=== PATIENT | male | born 1960 | race Caucasian/White ===

== ENCOUNTER 2016-09-20 05:40 | Day surgery (SDC) | payer MEDICAID ==
[2016-09-20] MEDS ORDERED: Dextrose 5%-Lactated Ringers 1,000 ML IV SCH (06:15)
[2016-09-20] MEDS ORDERED: Propofol 200 MG/20 ML SDV ONE (07:16)
[2016-09-20] MEDS ORDERED: fentaNYL 100 MCG/2 ML SDV ONE (07:16)
[2016-09-20] MEDS ORDERED: Midazolam 1 MG/ML 2 ML SDV ONE (07:16)
[2016-09-20 09:15] VITALS: BP 117/70
--- NOTE | 2016-09-23 15:22 | OR ---
DATE OF PROCEDURE: 09/20/2016 PREOPERATIVE DIAGNOSIS: Positive fecal immunochemical test. POSTOPERATIVE DIAGNOSES: 1. Small polyps involving distal transverse colon and rectum. 2. Large sessile mass involving the sigmoid colon. OPERATIVE PROCEDURE: Flexible colonoscopy with: 1. Polypectomy of small polyps at distal transverse colon and rectum with snare technique (16278). 2. Injection of Ruma ink at sigmoid colon mass (68464). ANESTHESIA: IV sedation. INDICATIONS FOR PROCEDURE: A 55-year-old male presenting with a positive FIT test, is undergoing colonoscopy at this point with biopsies and a polypectomy as indicated. Potential risks of the procedure including bleeding and perforation were discussed, and the patient wishes to proceed. DETAILS OF PROCEDURE: The patient was taken to the operating room and placed in a left lateral decubitus position. IV sedation was administered after which the initial digital rectal exam was performed and was unremarkable. Colonoscope was then passed into the rectum with retroflexion revealing uncomplicated hemorrhoidal columns. The scope was eventually passed along the cecum. The prep was fairly good. There was a fair bit of mucoid type stool that needed to be evacuated, but virtually all of the colonic surface was well visualized. The patient had no areas of colitis and no diverticula. There were two quite small polyps, one in distal transverse colon and one in the rectum at 10 cm from the dentate line, which were both excised by means of the cautery snare technique and were evacuated and sent in a separate specimen. The patient had additionally then a large mass involving the sigmoid colon. There was some abnormality of the mucosa, but this may end up being a submucosal mass, but it occupies roughly 2/3rd of the lumen and clearly at this point needs to be resected. If nothing else to prevent an obstruction and ulceration at that site. This was roughly 40 cm from the dentate line. To facilitate identification in case it happens to be fairly soft and difficult to palpate, 4 mL of Ruma ink was injected submucosally adjacent to the mass. At that point, no further problems noted and the scope was withdrawn and the patient was taken to the recovery room in satisfactory condition. After discussion of the situation, the patient and his , the plan will be to proceed with a sigmoid colon resection on Friday. The other polyps were extremely small and had negligible chance of being malignant at this point. Ac Chairez MD /[id number]
== END 2016-09-20 09:44 | disposition home or self-care (01) ==
LOC: JP.SDS 05:40
PROVIDERS: ATTEND Surgery
DX: Z12.11 Encounter for screening for malignant neoplasm of colon (principal); D12.3 Benign neoplasm of transverse colon; E11.9 Type 2 diabetes mellitus without complications; E78.5 Hyperlipidemia, unspecified; E66.01 Morbid (severe) obesity due to excess calories; K21.9 Gastro-esophageal reflux disease without esophagitis; G47.33 Obstructive sleep apnea (adult) (pediatric); Z88.0 Allergy status to penicillin; Z91.09 Other allergy status, other than to drugs and biological substances; F17.210 Nicotine dependence, cigarettes, uncomplicated; Z98.890 Other specified postprocedural states
CPT/HCPCS: 36415; 45381; 45385; 80053; 82378; 83036; 83735; 84100; 85027; 93005; J2250; J2704; J3010; 88305

== ENCOUNTER 2016-09-23 05:48 | Inpatient (IN) | payer MEDICAID ==
[2016-09-23] MEDS ORDERED: Acetaminophen 500 MG Tab PO ONE (06:00)
[2016-09-23] MEDS ORDERED: Gabapentin 300 MG Cap PO ONE (06:00)
[2016-09-23] MEDS ORDERED: Celecoxib 200 MG Cap PO ONE (06:00)
[2016-09-23] MEDS ORDERED: Neomycin/Polymyxin B 1 ML, Sodium Chloride 0.9% 750 ML IRR ONE ×2 (06:15)
[2016-09-23] MEDS: Scopolamine 1.5 MG Transdermal Patch TOP SCH (06:32)
[2016-09-23] MEDS ORDERED: Dextrose 5%-Lactated Ringers 1,000 ML IV SCH (07:00)
[2016-09-23] MEDS ORDERED: Ketamine 500 MG/5 ML MDV IV SCH (07:15)
[2016-09-23] MEDS ORDERED: Meropenem 500 MG SDV ONE (08:42)
[2016-09-23] MEDS ORDERED: Succinylcholine/Normal Saline 200 MG/10 ML Syringe ONE (08:46)
[2016-09-23] MEDS ORDERED: Rocuronium 50 MG/5 ML Vial ONE (08:46)
[2016-09-23] MEDS ORDERED: Ondansetron 4 MG/2 ML SDV ONE (08:46)
[2016-09-23] MEDS ORDERED: Propofol 200 MG/20 ML SDV ONE (08:46)
[2016-09-23] MEDS ORDERED: Neostigmine Methylsulfate 1 MG/ML 5 ML Syringe ONE (08:46)
[2016-09-23] MEDS ORDERED: fentaNYL 250 MCG/5 ML SDV ONE (08:46)
[2016-09-23] MEDS ORDERED: Dexamethasone 4 MG/ML SDV ONE (08:46)
[2016-09-23] MEDS ORDERED: Naloxone 0.4 MG/ML SDV IVPUSH PRN (08:52)
[2016-09-23] MEDS ORDERED: Albuterol/Ipratropium 3.0-0.5 MG/3 ML Neb Soln NEB ONE (08:58)
[2016-09-23] MEDS: cefOXitin 2 GM in Sodium Chloride 0.9% 50 ML IV ONE ×2 (09:45→14:41)
[2016-09-23] MEDS ORDERED: fentaNYL 100 MCG/2 ML SDV ONE (10:20)
[2016-09-23] MEDS ORDERED: Lactated Ringers 1,000 ML ONE (10:44)
[2016-09-23] MEDS ORDERED: Sodium Chloride 0.9% 10 ML ONE (10:44)
[2016-09-23] MEDS ORDERED: Lidocaine 2% Jelly 10 ML Urojet MUCMEM ONE (13:15)
[2016-09-23] MEDS ORDERED: 50% Dextrose in Water 50 ML Syringe IVPUSH PRN (14:11)
[2016-09-23] MEDS ORDERED: Glucose Gel 15 GM in 37.5 GM Tube PO PRN (14:11)
[2016-09-23] MEDS ORDERED: Glucagon,Human Recombinant 1 MG Vial IM PRN (14:11)
[2016-09-23] MEDS ORDERED: Ondansetron 4 MG/2 ML SDV IV PRN (14:16)
[2016-09-23] MEDS ORDERED: Cyclobenzaprine 10 MG Tab PO PRN (14:17)
[2016-09-23] MEDS ORDERED: Diazepam 5 MG Tab PO PRN (14:17)
[2016-09-23] MEDS ORDERED: hydrOXYzine HCl 100 MG/2 ML SDV IM PRN (14:22)
[2016-09-23] MEDS ORDERED: hydrOXYzine HCl 25 MG Tab PO PRN (14:23)
[2016-09-23] MEDS ORDERED: Naloxone 0.4 MG/ML SDV IV PRN (14:28)
[2016-09-23] MEDS ORDERED: diphenhydrAMINE 50 MG/ML SDV IVPUSH PRN (14:28)
[2016-09-23] MEDS ORDERED: ePHEDrine 50 MG/ML SDV IVPUSH PRN (14:28)
[2016-09-23] MEDS: Dextrose 5%-Lactated Ringers 1,000 ML IV SCH ×2 (14:35→21:31)
[2016-09-23] MEDS: fentaNYL 2,500 MCG in Sodium Chloride 0.9% 200 ML EPIDUR SCH (16:54)
[2016-09-23] MEDS: cefOXitin 2 GM in Sodium Chloride 0.9% 50 ML IV SCH ×2 (16:56→21:37)
[2016-09-23] MEDS: VERIFY SCOP PATCH TOP SCH (16:56)
[2016-09-23] MEDS: Gabapentin 300 MG Cap PO SCH ×2 (16:57→21:39)
[2016-09-23] MEDS: Acetaminophen 500 MG Tab PO SCH ×2 (16:58→21:39)
[2016-09-23] MEDS: Pantoprazole 40 MG Vial IV SCH (16:58)
[2016-09-23] MEDS: metFORMIN 500 MG Tab PO SCH (16:59)
[2016-09-23] MEDS: Insulin Aspart 100 Units/ML 3 ML Pen SUBCUT PRN ×2 (17:06→21:40)
[2016-09-23] MEDS: Tamsulosin 0.4 MG Cap.ER PO SCH (21:38)
[2016-09-24] MEDS: Dextrose 5%-Lactated Ringers 1,000 ML IV SCH (03:50)
[2016-09-24] MEDS: cefOXitin 2 GM in Sodium Chloride 0.9% 50 ML IV SCH (04:57)
[2016-09-24] MEDS: Acetaminophen 500 MG Tab PO SCH ×4 (04:58→21:53)
[2016-09-24] MEDS: Gabapentin 300 MG Cap PO SCH ×4 (05:00→21:54)
[2016-09-24] MEDS: Pioglitazone 15 MG Tab PO SCH ×2 (07:29→16:33)
[2016-09-24] MEDS ORDERED: Dextrose 5%-Lactated Ringers 1,000 ML IV SCH (07:30)
[2016-09-24] MEDS: Insulin Aspart 100 Units/ML 3 ML Pen SUBCUT PRN ×4 (07:34→20:49)
[2016-09-24] MEDS: metFORMIN 500 MG Tab PO SCH ×2 (07:41→16:33)
[2016-09-24] MEDS: traMADol 50 MG Tab PO SCH ×3 (07:44→19:42)
[2016-09-24] MEDS: Ibuprofen 600 MG Tab PO SCH ×3 (10:14→21:53)
[2016-09-24] MEDS: glipiZIDE 5 MG Tab PO SCH ×2 (10:15→20:42)
[2016-09-24] MEDS: Bisacodyl 5 MG Tab PO SCH ×2 (10:15→20:43)
[2016-09-24] MEDS: VERIFY SCOP PATCH TOP SCH (10:18)
[2016-09-24] MEDS: fentaNYL 2,500 MCG in Sodium Chloride 0.9% 200 ML EPIDUR SCH (11:16)
[2016-09-24] MEDS: Pantoprazole 40 MG Vial IV SCH (16:34)
[2016-09-24] MEDS: Bacitracin Oint 1 GM U/D Packet TOP PRN (19:42)
[2016-09-24] MEDS: Tamsulosin 0.4 MG Cap.ER PO SCH (20:43)
[2016-09-25] MEDS: traMADol 50 MG Tab PO SCH ×4 (02:04→20:06)
[2016-09-25] MEDS: Acetaminophen 500 MG Tab PO SCH ×4 (03:40→21:32)
[2016-09-25] MEDS: Ibuprofen 600 MG Tab PO SCH ×4 (03:40→21:32)
[2016-09-25] MEDS: Gabapentin 300 MG Cap PO SCH ×4 (05:21→21:32)
[2016-09-25] MEDS ORDERED: Meropenem 500 MG SDV ONE (06:45)
[2016-09-25] MEDS ORDERED: Bupivacaine 0.5% 50 ML MDV ONE (06:45)
[2016-09-25] MEDS ORDERED: Lidocaine 1% with EPINEPHrine 1:100,000 50 ML MDV ONE (06:46)
[2016-09-25] MEDS ORDERED: Midazolam 1 MG/ML 2 ML SDV ONE (07:07)
[2016-09-25] MEDS ORDERED: Propofol 200 MG/20 ML SDV ONE ×3 (07:07→08:06)
[2016-09-25] MEDS ORDERED: fentaNYL 100 MCG/2 ML SDV ONE (07:07)
[2016-09-25] MEDS: Pioglitazone 15 MG Tab PO SCH ×2 (09:10→17:10)
[2016-09-25] MEDS: metFORMIN 500 MG Tab PO SCH ×2 (09:11→17:11)
[2016-09-25] MEDS: Bisacodyl 5 MG Tab PO SCH ×2 (09:12→20:59)
[2016-09-25] MEDS: glipiZIDE 5 MG Tab PO SCH ×2 (09:12→21:02)
[2016-09-25] MEDS: VERIFY SCOP PATCH TOP SCH (09:13)
[2016-09-25] MEDS: Insulin Aspart 100 Units/ML 3 ML Pen SUBCUT PRN ×4 (09:17→21:02)
[2016-09-25] MEDS ORDERED: Sodium Chloride 0.9% 10 ML Syringe IV PRN (13:25)
[2016-09-25] MEDS: Pantoprazole 40 MG Vial IV SCH ×2 (17:11→17:28)
[2016-09-25] MEDS ORDERED: Dextrose 5%-Lactated Ringers 1,000 ML IV SCH ×2 (17:45)
[2016-09-25] MEDS: Metoclopramide 10 MG/2 ML SDV IVPUSH SCH (18:13)
[2016-09-25] MEDS: Bacitracin Oint 1 GM U/D Packet TOP PRN (20:06)
[2016-09-25] MEDS: Tamsulosin 0.4 MG Cap.ER PO SCH (21:01)
[2016-09-26] MEDS: Metoclopramide 10 MG/2 ML SDV IVPUSH SCH ×2 (00:12→05:51)
--- NOTE | 2016-09-26 01:08 | OR ---
DATE OF PROCEDURE: 09/25/2016 PREOPERATIVE DIAGNOSIS: Open abdominal incision. POSTOPERATIVE DIAGNOSIS: Open abdominal incision. OPERATIVE PROCEDURE: Delayed primary closure of open abdominal incision. ANESTHESIA: Local plus IV sedation. INDICATION FOR PROCEDURE: This is a 55-year-old male status post a sigmoid colon resection 48 hours ago. At the time of the procedure, he was felt to be high risk for wound infection and primary closure was undertaken. Given this, he is undergoing delayed primary closure at this time. Potential risks including bleeding, infection, aspiration of gastric contents during the sedation were reviewed, and the patient wishes to proceed. DETAILS OF PROCEDURE: The patient was taken to the operating room and placed in a supine position, sitting up somewhat to minimize aspiration risk. The abdominal dressing was taken down. The wound was inspected and found to be clean. IV sedation was being administered as the area was prepped and draped, anesthetized with 1% lidocaine mixed with Marcaine, and irrigated with meropenem-containing saline solution along the inferior aspect of the lower midline incision. A Flynn-Mansfield drain was also placed, this being a 10-[place] drain, and sutured to skin with some 3-0 Vicryl stitch. The incision was then closed with 2 layers of 3-0 and 4-0 Vicryl stitch deep and lauren for the skin. The patient was taken to the recovery room in satisfactory condition. Ac Chairez MD /[id number]
[2016-09-26] MEDS: traMADol 50 MG Tab PO SCH ×4 (02:52→19:57)
[2016-09-26] MEDS: Ibuprofen 600 MG Tab PO SCH ×4 (04:17→21:55)
[2016-09-26] MEDS: Acetaminophen 500 MG Tab PO SCH ×4 (04:18→21:55)
[2016-09-26] MEDS: Scopolamine 1.5 MG Transdermal Patch TOP SCH (05:51)
[2016-09-26] MEDS: Gabapentin 300 MG Cap PO SCH ×4 (05:51→21:55)
[2016-09-26] MEDS: Pioglitazone 15 MG Tab PO SCH ×2 (07:22→16:49)
[2016-09-26] MEDS: metFORMIN 500 MG Tab PO SCH ×2 (07:22→16:48)
[2016-09-26] MEDS: Insulin Aspart 100 Units/ML 3 ML Pen SUBCUT PRN ×3 (07:24→21:56)
[2016-09-26] MEDS: Bisacodyl 5 MG Tab PO SCH ×2 (08:39→21:55)
[2016-09-26] MEDS: VERIFY SCOP PATCH TOP SCH (08:39)
[2016-09-26] MEDS: glipiZIDE 5 MG Tab PO SCH ×2 (08:40→21:55)
--- NOTE | 2016-09-26 08:52 | PN ---
DATE OF SERVICE: 09/26/2016 SUBJECTIVE: Xavier is a 55-year-old male. He is postop day 3 following exploratory laparotomy with rectosigmoid resection. He did develop an ileus yesterday. His IV fluids remained, he remained n.p.o. with ice chips. He started passing flatus and during the night he started having bowel movement. He is feeling much better. REVIEW OF SYSTEMS: Remainder of review of systems negative for any pertinent positives and negatives. OBJECTIVE: GENERAL: Xavier Maier is a 55-year-old male TPR 97.4,82,18, blood pressure 115/60 HEENT: Negative. NECK: Supple. HEART: Regular rate and rhythm. LUNGS: Clear. ABDOMEN: Dressings dry and intact. Abdominal binder is on. HARSHAD drain has put out 10 mL of a light pink serosanguineous drainage. EXTREMITIES: Without peripheral edema. ASSESSMENT: Exploratory laparotomy with rectosigmoid resection and proctostomy and mobilization of omentum into pelvis for sigmoid mass, date of surgery 09/23/2016. PLAN: 1. Continue to check a continuous glucose. 2. Full liquid diet this morning for breakfast and then at lunch may advance to a soft GI low fiber diet. 3. His IV was to be saline locked, but it infiltrated so was discontinued. 4. DC Reglan IV change to Reglan 10 mg q.6. hours p.o. 5. Aquacel dressing may be removed. 6. May shower. 7. We will evaluate p.r.n. or in a.m. 8. Plan discharge in a.m. Lesia Wild PA-C /[id number]
[2016-09-26] MEDS: Metoclopramide 10 MG Tab PO SCH ×3 (10:26→19:57)
--- NOTE | 2016-09-26 10:48 | CR ---
Abdomen 2V AP Flat Upright HISTORY: Postop bloating. COMPARISON: None FINDINGS: Postoperative changes in the midline. Bowel gas pattern is nonobstructive. There is no logan e air seen. No dilated loops of bowel seen. No suspicious calcifications. Catheter overlies the lowe r margin of the surgical incision. Impression: No evidence for obstruction or ileus.
--- NOTE | 2016-09-26 11:07 | PN ---
DATE OF SERVICE: 09/24/2016 The patient has been clinically stable overnight, tolerating the diet fairly well. We will move his IV to keep open at this point and will start ibuprofen and tramadol. His blood sugar is somewhat high, and we will start the glipizide and Actos once again. We will begin bowel stimulation with Senna and Dulcolax oral tablets. He will be NPO after midnight and then proceed with delayed primary closure tomorrow. Discussion regarding his obesity was initiated. Will have Dietary see the patient regarding his type 2 diabetes mellitus and consideration of entering a nonsurgical weight loss program, which they did not feel he would be a good candidate for weight loss procedure. Ac Chairez MD /[id number]
--- NOTE | 2016-09-26 11:31 | PN ---
DATE OF SERVICE: 09/25/2016 The patient has been afebrile with stable vital signs. His epidural catheter came out around 3 a.m. and appears to be controlled satisfactorily with present oral medications. He is to undergo delayed primary closure of abdominal incision and then will resume regular diet after the closure. He is passing some gas. Has not had a bowel movement as of yet. He will take Dulcolax oral tablets until he moves his bowels. He is ready for discharge home tomorrow. His blood sugars are running in the 180 to 200 range, which for him is better control than usual. Ac Chairez MD /[id number]
[2016-09-26] MEDS ORDERED: Pantoprazole 40 MG Tab.CR PO SCH (16:30)
[2016-09-26] MEDS: Tamsulosin 0.4 MG Cap.ER PO SCH (21:55)
[2016-09-27] MEDS: Acetaminophen 500 MG Tab PO SCH (03:39)
[2016-09-27] MEDS: Ibuprofen 600 MG Tab PO SCH (03:40)
[2016-09-27] MEDS: traMADol 50 MG Tab PO SCH ×2 (03:40→08:47)
[2016-09-27] MEDS: Gabapentin 300 MG Cap PO SCH (05:46)
[2016-09-27 07:32] VITALS: BP 140/59
[2016-09-27] MEDS: glipiZIDE 5 MG Tab PO SCH (08:40)
[2016-09-27] MEDS: Bisacodyl 5 MG Tab PO SCH (08:40)
[2016-09-27] MEDS: Metoclopramide 10 MG Tab PO SCH (08:40)
[2016-09-27] MEDS: metFORMIN 500 MG Tab PO SCH (08:41)
[2016-09-27] MEDS: Pioglitazone 15 MG Tab PO SCH (08:41)
--- NOTE | 2016-09-27 15:12 | OR ---
DATE OF PROCEDURE: 09/23/2016 PREOPERATIVE DIAGNOSIS: Sessile mass of sigmoid colon. POSTOPERATIVE DIAGNOSIS: Sessile mass of sigmoid colon. OPERATIVE PROCEDURES: Exploratory laparotomy with; 1. Rectosigmoid resection with coloproctostomy (20121). 2. Mobilization of the omentum and pelvis to displace small bowel in the event of indications for postoperative radiotherapy (03535). ANESTHESIA: General plus epidural. INDICATION FOR PROCEDURE: This is a 55-year-old male recently presenting with positive fit test. At the time of the colonoscopy, he was noted to have a large sessile mass occupying the majority of the lumen in the sigmoid colon. Plan is to proceed with a sigmoid resection. Potential risks of the procedure including bleeding, infection, leaks from the anastomosis, possibly requiring at least a temporary colostomy, as well as the possibility of cardiopulmonary, septic, or hemorrhagic complications leading to were discussed, and the patient wishes to proceed. DETAILS OF PROCEDURE: The patient was taken to the operating room and after an epidural catheter was placed, general endotracheal anesthetic was induced. The patient was placed in a lithotomy position, a Disla catheter was inserted, and the abdomen was prepped and draped. A lower midline incision from just above the umbilicus down to the pubis was made and carried down through the full thickness of the abdominal wall. Upon entering the peritoneal cavity, general exploration was undertaken. The patient had a quite dense visceral fat. Otherwise, the point of injection of the Ruma ink was identified within the ulcer of the distal sigmoid colon. The mass at that area was palpable, which appeared to be fairly soft. There was no significant lymphadenopathy within the mesentery of the sigmoid colon or in the periaortic area. Remainder of the examination, other than for the dense visceral fat, was unremarkable. At this point, the lateral peritoneal reflection of this sigmoid colon and descending colon were divided. This allowed mobilization of those areas downward, a few centimeters proximal to the mass and Ruma ink injection. The colon was divided with a KAMINI purple load below that and then in the junction of the mid and upper rectum. That area was encircled and divided with a curved KAMINI black load. The underlying mesentery was then divided with removing significant amount of the mesentery and attached nodes. The specimen was then delivered from the field. Off the field, the specimen was inspected. This appeared to most likely have a submucosal lesion. On gross examination, this appeared to be suspicious for a submucosal lipoma, but pathology is obviously pending. At this point, the divided end of sigmoid colon was opened, and the anvil of a 28-mm EEA stapler was placed into the lumen. This was then re-stapled with a purple load and the anvil was brought out through the most dependent portion of the divided sigmoid colon transanally. Then, the main body of EEA stapler was brought up to the apex of the divided rectum and the 2 components of the stapler were united and the coloproctostomy was thus accomplished. Upon removal of the stapler, double donuts of mucosa were noted within it. At this point, the anastomosis was inspected. This was high enough that a good visualization of the anastomosis was available and a colonoscopic examination was felt not to be necessary. Anastomoses were then reinforced with some 3-0 Vicryl seromuscular stitch. The underlying mesenteric defect was approximated more or less by tacking down the 2 ends of the colon and rectal mesentery through the retroperitoneum posterior to it with a figure-of- eight stitch of 0 Vicryl stitch. The anastomosis was then reinforced with 4 mL of fibrin sealant. In the event that this might be a malignancy requiring radiation treatment, the omentum was brought down to the pelvis to displace the small bowel from those areas. This was sutured in place with some 3-0 Vicryl stitch. The abdomen was irrigated with antibiotic-containing saline solution. Single Flynn-Mansfield drain was then placed through a stab wound. The right midabdomen was taken down adjacent to the anastomosis and at that point, no further problems were noted. The midline fascia was then approximated with a #2 Vicryl stitch. Skin and subcutaneous tissue were felt to be high risk for a wound infection if primary closure was undertaken and given this, these were packed open with iodoform gauze for a planned delayed primary closure in 48 hours. There were no evident complications. The patient was taken to the recovery room in satisfactory condition. Ac Chairez MD /[id number]
--- NOTE | 2016-09-28 04:58 | DISCH ---
ADMISSION DIAGNOSES: 1. Mass in sigmoid colon. 2. Diabetes. 3. Hyperlipidemia. DISCHARGE DIAGNOSES: 1. Exploratory laparotomy with rectosigmoid resection and. 2. coloproctostomy, and mobilization of omentum into the pelvis for sigmoid mass. Date of surgery 09/23/2016. 3. Delayed primary closure for open abdominal incision on 09/25/2016. HISTORY: Xavier Maier is a 55-year-old male, who had sigmoid colon resection after he was found to have a mass on his sigmoid colon about the size of an egg. After preoperative evaluation and discussion of possible risks and possible complications, he wished to proceed with surgical procedure. HOSPITAL COURSE: Xavier had his surgery on 09/23/2016 with delayed primary closure on 09/25/2016. He did develop a small ileus, which resolved on its own on 09/25/2016. He did have a bowel movement, was started on a full liquid diet, advanced to regular diet. His pain was controlled. His activity was good. He was able to be discharged to home on 09/27/2016. PHYSICAL EXAMINATION: GENERAL: Xavier Maier is a 55-year-old male. Height is 5 feet, 10.7 inches. Weight is 268 pounds. VITAL SIGNS: TPR is 97.4, 80, 16, blood pressure 140/59. HEENT: Negative. NECK: Supple. HEART: Regular rate and rhythm. LUNGS: Clear. ABDOMEN: Incision, lauren in place. HARSHAD drain was removed. Abdominal binder has been on. EXTREMITIES: Without peripheral edema. DISPOSITION: Discharged home. CONDITION: Stable and improving. FOLLOWUP APPOINTMENT: With Lesia Wild PA-C, on 10/04/2016 at 9:00 a.m. HOME MEDICATION: 1. Ibuprofen 600 mg every 6 hours for 2 weeks #56 take with meals. 2. Tylenol 1000 mg oral every 6 hours. 3. Senna plus 2 tabs oral daily, #100. 4. Flomax 0.4 mg oral at bedtime, #14. 5. Tramadol 100 mg q.6 hours p.r.n. pain, #50. He is to resume his home medications of: 1. Neurontin. 2. Gabapentin 300 mg 4 times a day. 3. Actos 15 mg oral before dinner. 4. Actos 30 mg oral before breakfast. 5. Lipitor 10 mg oral at bedtime. 6. Glucotrol 5 mg oral twice daily. 7. Metformin 1000 mg oral twice daily. DIET AFTER DISCHARGE: Usual diet as tolerated. Drink 8 to 10 glasses of water a day. ACTIVITY: As tolerated. No lifting greater than 10 pounds for [address]riving, do not drive on tramadol. Shower bathing, may shower. Notify provider if any fever, increased pain, nausea, or vomiting. Wound incision care, keep site clean and dry. Wear abdominal binder for 6 weeks and then as tolerated. Special instruction, use incentive spirometer 10 times every hour while awake for 2 weeks. Check blood sugars twice a day and then as needed.
== END 2016-09-27 09:20 | disposition home or self-care (01) | DRG 982 ==
LOC: JP.SDS 05:48 → JP.MS 05:48 → EDSTATUS 08:30 → JP.2SS 12:48
PROVIDERS: ADMIT Surgery; ATTEND Surgery
PROC: 0DBN0ZZ Excision of Sigmoid Colon, Open Approach (ICD-10-PCS; principal; 2016-09-23)
PROC: 0DBP0ZZ Excision of Rectum, Open Approach (ICD-10-PCS; principal; 2016-09-23)
PROC: 0D1N0ZP Bypass Sigmoid Colon to Rectum, Open Approach (ICD-10-PCS; principal; 2016-09-23)
PROC: 0DNT0ZZ (ICD-10-PCS; principal; 2016-09-23)
PROC: 0WQF0ZZ Repair Abdominal Wall, Open Approach (ICD-10-PCS; 2016-09-25)
DX: D17.79 Benign lipomatous neoplasm of other sites (principal); K56.7 Ileus, unspecified; K63.5 Polyp of colon; E11.9 Type 2 diabetes mellitus without complications; Z79.84 Long term (current) use of oral hypoglycemic drugs; E78.5 Hyperlipidemia, unspecified; G47.30 Sleep apnea, unspecified; M54.5 Low back pain; E66.9 Obesity, unspecified; Z68.37 Body mass index [BMI] 37.0-37.9, adult; M54.16 Radiculopathy, lumbar region
CPT/HCPCS: 74020; 74020-26; 82962; 88307; 94762; A9270-GY; C9113; J0694; J1100; J2185; J2250; J2405; J2704; J2765; J3010; J7042; J7050; J7120; J7620

== ENCOUNTER 2016-10-07 20:16 | Inpatient (IN) | payer MEDICAID ==
--- NOTE | 2016-10-07 20:52 | EDM.PDOC ---
ED HPI GENERAL MEDICAL PROBLEM - General Chief Complaint: Abdominal Pain Stated Complaint: HAD SURGERY SEPTEMBER 23 NOT DOING WELL Time Seen by Provider: 10/07/16 20:52 Source of Information: Reports: Patient, Old Records, RN Notes Reviewed History Limitations: Reports: No Limitations - History of Present Illness INITIAL COMMENTS - FREE TEXT/NARRATIVE: Here with his Chief complaint Abdominal pain and bloating and chills History of present illness 55-year-old male underwent bowel resection for a large sessile polyp on September 23. He was able to the hospital but never felt entirely well, had the the lauren removed 3 days ago. In the last 2 days he's had increased pain sweats and then today chills and shivering. Pain is primarily left lower quadrant. Appetite is decreased. He can eat a little bit toast in the morning but after that any ingestion of food will make his pain much worse. He feels bloated. However he still passing formed stools and flatus. He is burping more than usual. His only previous abdominal procedure has been a Anila fundoplication and number of years ago. The polyp removed was benign. He is on tramadol for pain but is no longer working for his abdominal pain. However currently the pain is a little bit less Left Lower Abdominal Pain Score (Numeric/FACES): 6 - Related Data Allergies Allergy/AdvReac Type Severity Reaction Status Date / Time adhesive tape Allergy Other Verified 12/25/15 11:34 Penicillins Allergy Hives Verified 12/25/15 11:34 Home Meds: Home Meds Cyclobenzaprine [Flexeril] 10 mg PO TID PRN 12/25/15 [History] Gabapentin [Neurontin] 300 mg PO QID 12/25/15 [History] Pioglitazone HCl [Actos] 15 mg PO ACDINNER 12/25/15 [History] Pioglitazone [Actos] 30 mg PO ACBREAKFAST 12/25/15 [History] glipiZIDE [Glucotrol] 5 mg PO BID 12/25/15 [History] metFORMIN [Glucophage] 1,000 mg PO BID 12/25/15 [History] atorvaSTATin [Lipitor] 10 mg PO BEDTIME 09/18/16 [History] Acetaminophen [Tylenol Extra Strength] 1,000 mg PO Q6H tablet 09/27/16 [Rx] Docusate Sodium/Sennosides [Senna Plus] 2 tab PO DAILY #100 tablet 09/27/16 [Rx] Ibuprofen [IJD: Ibuprofen] 600 mg PO Q6HR #56 tablet 09/27/16 [Rx] Tamsulosin [Flomax] 0.4 mg PO BEDTIME #14 cap.er 09/27/16 [Rx] traMADol [Ultram] 100 mg PO Q6H PRN #50 tablet 09/27/16 [Rx] Simethicone [Gas Relief 80] 80 mg PO ASDIRECTED 10/07/16 [History] Past Medical History HEENT History: Reports: Other (See Below) Other HEENT History: nasal trauma Cardiovascular History: Reports: Hypertension Respiratory History: Reports: Pneumonia, Recurrent, Sleep Apnea, Other (See Below) Other Respiratory History: wears CPAP Gastrointestinal History: Reports: GERD, Hiatal Hernia Musculoskeletal History: Reports: Arthritis, Back Pain, Chronic, Fracture, Other (See Below) Other Musculoskeletal History: shoulder dislocation Endocrine/Metabolic History: Reports: Diabetes, Type II Oncologic (Cancer) History: Reports: Other (See Below) Other Oncologic History: skin Dermatologic History: Reports: Other (See Below) Other Dermatologic History: skin cancer - Infectious Disease History Infectious Disease History: Reports: Chicken Pox - Past Surgical History HEENT Surgical History: Reports: Other (See Below) GI Surgical History: Reports: Colonoscopy, EGD, Anila Fundoplication Other GI Surgeries/Procedures: sigmoid colon growth removed. Endocrine Surgical History: Reports: None Neurological Surgical History: Reports: Other (See Below) Other Neurological Surgeries/Procedures: L5-S1 surgery Musculoskeletal Surgical History: Reports: Other (See Below) Other Musculoskeletal Surgeries/Procedures:: back surgery Oncologic Surgical History: Reports: None Dermatological Surgical History: Reports: Skin Biopsy Social & Family History - Family History Family Medical History: Noncontributory - Tobacco Use Smoking Status *Q: Light Tobacco Smoker Years of Tobacco use: 30 Packs/Tins Daily: 0.8 Used Tobacco, but Quit: No Second Hand Smoke Exposure: No - Caffeine Use Caffeine Use: Reports: Soda Caffeine Use Comment: 10 - Recreational Drug Use Recreational Drug Use: No ED ROS GENERAL - Review of Systems Review Of Systems: See Below Constitutional: Reports: Fever, Chills, Malaise, Fatigue HEENT: Reports: No Symptoms Respiratory: Reports: No Symptoms Cardiovascular: Reports: No Symptoms GI/Abdominal: Reports: Abdominal Pain, Decreased Appetite, Distension, Flatus, Nausea, Other (Increased burping). Denies: Constipation, Diarrhea, Vomiting : Reports: No Symptoms Musculoskeletal: Reports: Back Pain (Chronic, on gabapentin) Skin: Reports: No Symptoms Neurological: Reports: No Symptoms ED EXAM, GI/ABD - Physical Exam Exam: See Below Exam Limited By: No Limitations General Appearance: Alert, Mild Distress, Other (Febrile with mild tachycardia, blood pressure is elevated) Eyes: Bilateral: Normal Appearance Ears: Normal External Exam Nose: Normal Inspection, Normal Mucosa Throat/Mouth: Normal Inspection, Normal Oropharynx, Normal Voice Head: Atraumatic, Normocephalic Neck: Supple. No: Lymphadenopathy (R), Lymphadenopathy (L) Respiratory/Chest: No Respiratory Distress, Lungs Clear, Normal Breath Sounds, No Accessory Muscle Use Cardiovascular: Regular Rate, Rhythm, Tachycardia (Rate 108) GI/Abdominal Exam: Soft, Distended, Tender (Especially left lower quadrant), Abnormal Bowel Sounds (Increased in quantity and slightly impinge), Other ( Midline lower abdominal surgical scar is healing, no signs of dehiscence or infection). No: Rigid, Mass (Male) Exam: No Hernia Extremities: Normal Inspection, Non-Tender, No Pedal Edema Neurological: Oriented, No Motor/Sensory Deficits Psychiatric: Normal Mood Skin Exam: Warm, Dry, Normal Color, No Rash Lymphatic: No Adenopathy Course - Vital Signs Last Recorded V/S: Last Vital Signs Temp 37.3 C 10/08/16 00:45 Pulse 100 10/08/16 00:45 Resp 18 10/08/16 00:45 BP 114/55 L 10/08/16 00:45 Pulse Ox 96 10/08/16 00:45 - Orders/Labs/Meds Orders: Active Orders 24 hr Category Date Time Status Peripheral IV Care [RC] . DIRECTED Care 10/07/16 21:06 Active Abdomen Pelvis w Cont [CT] Stat Exams 10/07/16 21:04 Taken CULTURE BLOOD [BC] Urgent Lab 10/07/16 21:13 Received CULTURE BLOOD [BC] Urgent Lab 10/07/16 21:15 Received Iopamidol [Isovue-300 (61%)] Med 10/07/16 21:15 Active 128 ml IV . DIRECTED Sodium Chloride 0.9% [Normal Saline] 1,000 ml Med 10/07/16 21:15 Active IV ASDIRECTED Sodium Chloride 0.9% [Normal Saline] 80 ml Med 10/07/16 21:15 Active IV ASDIRECTED Sodium Chloride 0.9% [Saline Flush] Med 10/07/16 21:04 Active 10 ml FLUSH ASDIRECTED PRN Sodium Chloride 0.9% [Saline Flush] Med 10/07/16 21:14 Active 10 ml FLUSH ASDIRECTED PRN Blood Culture x2 Reflex Set [OM.PC] Urgent Ot 10/07/16 21:06 Ordered Peripheral IV Insertion Adult [OM.PC] Routine Ot 10/07/16 21:04 Ordered Medication Orders Sodium Chloride (Normal Saline) 1,000 mls @ 250 mls/hr IV ASDIRECTED INGRID Last Admin: 10/07/16 21:16 Dose: 250 mls/hr Sodium Chloride (Normal Saline) 80 mls @ 3 mls/sec IV ASDIRECTED INGRID Last Admin: 10/07/16 21:29 Dose: 3 mls/sec Aztreonam 1 gm/ Sodium (Chloride) 50 mls @ 100 mls/hr IV Q8HR INGRID Meropenem 500 mg/ Sodium (Chloride) 50 mls @ 100 mls/hr IV Q6H INGRID Sodium Chloride (Normal Saline) 1,000 mls @ 250 mls/hr IV ASDIRECTED INGRID Iopamidol (Isovue-300 (61%)) 128 ml IV . DIRECTED INGRID Last Admin: 10/07/16 21:29 Dose: 128 ml Sodium Chloride (Saline Flush) 10 ml FLUSH ASDIRECTED PRN PRN Reason: Keep Vein Open Last Admin: 10/07/16 21:16 Dose: 10 ml Sodium Chloride (Saline Flush) 10 ml FLUSH ASDIRECTED PRN PRN Reason: Keep Vein Open Last Admin: 10/07/16 21:29 Dose: 10 ml Labs: Laboratory Tests 10/07/16 10/07/16 10/07/16 Range/Units 21:04 21:04 21:04 WBC 15.8 H (4.5-11.0) K/uL RBC 4.12 L (4.30-5.90) M/uL Hgb 12.9 (12.0-15.0) g/dL Hct 37.9 L (40.0-54.0) % MCV 92 (80-98) fL MCH 31 (27-31) pg MCHC 34 (32-36) % Plt Count 252 (150-400) K/uL Sodium 129 L (140-148) mmol/L Potassium 4.1 (3.6-5.2) mmol/L Chloride 95 L (100-108) mmol/L Carbon Dioxide 25 (21-32) mmol/L Anion Gap 13.1 (5.0-14.0) mmol/L BUN 10 D (7-18) mg/dL Creatinine 0.9 (0.8-1.3) mg/dL Est Cr Clr Drug Dosing 98.77 mL/min Estimated GFR (MDRD) > 60 (>60) Glucose 190 H (74-106) mg/dL Lactic Acid 1.3 (0.4-2.0) mmol/L Calcium 9.2 (8.5-10.1) mg/dL Total Bilirubin 1.1 H D (0.2-1.0) mg/dL AST 13 L (15-37) U/L ALT 23 (12-78) U/L Alkaline Phosphatase 71 (46-116) U/L Total Protein 7.2 (6.4-8.2) g/dL Albumin 3.2 L (3.4-5.0) g/dL Globulin 4.0 H (2.3-3.5) g/dL Albumin/Globulin Ratio 0.8 L (1.2-2.2) Lipase 143 (73-393) U/L Meds: Medications Generic Name Dose Route Start Last Admin Trade Name Freq PRN Reason Stop Dose Admin Sodium Chloride 1,000 mls @ 250 mls/hr 10/07/16 21:15 10/07/16 21:16 Normal Saline IV 250 mls/hr ASDIRECTED INGRID Administration Sodium Chloride 80 mls @ 3 mls/sec 10/07/16 21:15 10/07/16 21:29 Normal Saline IV 3 mls/sec ASDIRECTED INGRID Administration Aztreonam 1 gm/ Sodium 50 mls @ 100 mls/hr 10/08/16 06:00 Chloride IV Q8HR INGRID Meropenem 500 mg/ Sodium 50 mls @ 100 mls/hr 10/08/16 04:00 Chloride IV Q6H INGRID Sodium Chloride 1,000 mls @ 250 mls/hr 10/08/16 01:00 Normal Saline IV ASDIRECTED INGRID Iopamidol 128 ml 10/07/16 21:15 10/07/16 21:29 Isovue-300 (61%) IV 128 ml . DIRECTED INGRID Administration Sodium Chloride 10 ml 10/07/16 21:04 10/07/16 21:16 Saline Flush FLUSH 10 ml ASDIRECTED PRN Administration Keep Vein Open Sodium Chloride 10 ml 10/07/16 21:14 10/07/16 21:29 Saline Flush FLUSH 10 ml ASDIRECTED PRN Administration Keep Vein Open Discontinued Medications Generic Name Dose Route Start Last Admin Trade Name Freq PRN Reason Stop Dose Admin Acetaminophen 1,000 mg 10/07/16 23:08 10/07/16 23:32 Tylenol Extra Strength PO 10/07/16 23:09 1,000 mg ONETIME ONE Administration Aztreonam Confirm 10/08/16 00:56 10/08/16 01:11 Azactam Administered 10/08/16 00:57 Not Given Dose 1 gm .ROUTE .STK-MED ONE Aztreonam 1,000 mg/ Sodium 50 mls @ 100 mls/hr 10/07/16 23:08 10/08/16 01:07 Chloride IV 10/07/16 23:37 100 mls/hr ONETIME ONE Administration Meropenem 500 mg/ Sodium 50 mls @ 100 mls/hr 10/07/16 23:08 10/07/16 23:43 Chloride IV 10/07/16 23:37 100 mls/hr ONETIME ONE Administration Sodium Chloride Confirm 10/08/16 00:57 10/08/16 01:10 Normal Saline Administered 10/08/16 00:58 Not Given Dose 50 mls @ as directed .ROUTE .STK-MED ONE Morphine Sulfate 8 mg 10/07/16 22:06 10/07/16 22:25 Morphine IVPUSH 10/07/16 22:07 8 mg ONETIME ONE Administration - Re-Assessments/Exams Free Text/Narrative Re-Assessment/Exam: 10/07/16 21:12 55-year-old male, 2 weeks post bowel resection for a large sessile polyp presenting with increasing abdominal pain especially the lower left quadrant, bloating nausea but no vomiting increased gas and fever. Differential diagnosis includes bowel perforation, bowel leak, abscess, colitis among others. Intravenous saline Labs and blood cultures Patient declines analgesics currently CT scan abdomen 10/07/16 22:07 Elevated white count and normal lipase and liver enzymes and lactic Now requesting pain medication 22.05, morphine 8 mg IV ordered 10/07/16 22:[address] scan shows some air around the anastomosis and under the diaphragm, since surgery was 2 weeks ago this still could be postoperative air, no evidence of abscess. Acetaminophen for fever Dr. Chairez contacted 10/08/16 02:24 Admitted for intravenous antibiotics, meropenem and anzatac because of possibility of postoperative infection and postoperative abdominal pain Departure - Departure Time of Disposition: 23:10 Disposition: Admitted As Inpatient 66 Condition: Good Clinical Impression: Postoperative fever, Postoperative abdominal pain - Discharge Information - My Orders Last 24 Hours: My Active Orders 10/07/16 21:04 Abdomen Pelvis w Cont [CT] Stat Sodium Chloride 0.9% [Saline Flush] 10 ml FLUSH ASDIRECTED PRN Peripheral IV Insertion Adult [OM.PC] Routine 10/07/16 21:06 Peripheral IV Care [RC] . DIRECTED Blood Culture x2 Reflex Set [OM.PC] Urgent 10/07/16 21:13 CULTURE BLOOD [BC] Urgent 10/07/16 21:14 Sodium Chloride 0.9% [Saline Flush] 10 ml FLUSH ASDIRECTED PRN 10/07/16 21:15 CULTURE BLOOD [BC] Urgent Iopamidol [Isovue-300 (61%)] 128 ml IV . DIRECTED Sodium Chloride 0.9% [Normal Saline] 1,000 ml IV ASDIRECTED Sodium Chloride 0.9% [Normal Saline] 80 ml IV ASDIRECTED - Assessment/Plan Last 24 Hours: My Active Orders 10/07/16 21:04 Abdomen Pelvis w Cont [CT] Stat Sodium Chloride 0.9% [Saline Flush] 10 ml FLUSH ASDIRECTED PRN Peripheral IV Insertion Adult [OM.PC] Routine 10/07/16 21:06 Peripheral IV Care [RC] . DIRECTED Blood Culture x2 Reflex Set [OM.PC] Urgent 10/07/16 21:13 CULTURE BLOOD [BC] Urgent 10/07/16 21:14 Sodium Chloride 0.9% [Saline Flush] 10 ml FLUSH ASDIRECTED PRN 10/07/16 21:15 CULTURE BLOOD [BC] Urgent Iopamidol [Isovue-300 (61%)] 128 ml IV . DIRECTED Sodium Chloride 0.9% [Normal Saline] 1,000 ml IV ASDIRECTED Sodium Chloride 0.9% [Normal Saline] 80 ml IV ASDIRECTED
[2016-10-07] MEDS ORDERED: Sodium Chloride 0.9% 10 ML Syringe FLUSH PRN ×2 (21:04→21:14)
[2016-10-07] MEDS ORDERED: Sodium Chloride 0.9% 80 ML IV SCH (21:15)
[2016-10-07] MEDS ORDERED: Iopamidol 612 MG/ML 150 ML Bottle IV SCH (21:15)
[2016-10-07] MEDS: Sodium Chloride 0.9% 1,000 ML IV SCH (21:16)
[2016-10-07] MEDS ORDERED: Morphine 10 MG/ML Syringe IVPUSH ONE (22:06)
[2016-10-07] MEDS ORDERED: Meropenem 500 MG in Sodium Chloride 0.9% 50 ML IV ONE (23:08)
[2016-10-07] MEDS ORDERED: Acetaminophen 500 MG Tab PO ONE (23:08)
[2016-10-08] MEDS ORDERED: Sodium Chloride 0.9% 50 ML ONE (00:57)
[2016-10-08] MEDS ORDERED: Sodium Chloride 0.9% 1,000 ML IV SCH (01:00)
[2016-10-08] MEDS: Sodium Chloride 0.9% 1,000 ML IV SCH (03:38)
[2016-10-08] MEDS: Meropenem 500 MG in Sodium Chloride 0.9% 50 ML IV SCH ×4 (04:05→21:10)
[2016-10-08] MEDS ORDERED: 50% Dextrose in Water 50 ML Syringe IVPUSH PRN (07:50)
[2016-10-08] MEDS ORDERED: Glucagon,Human Recombinant 1 MG Vial IM PRN (07:50)
[2016-10-08] MEDS ORDERED: Glucose Gel 15 GM in 37.5 GM Tube PO PRN (07:50)
[2016-10-08] MEDS ORDERED: traMADol 50 MG Tab PO PRN (07:51)
[2016-10-08] MEDS ORDERED: Acetaminophen 500 MG Tab PO PRN (07:52)
[2016-10-08] MEDS ORDERED: HYDROmorphone 1 MG/ML Syringe IV PRN (07:53)
[2016-10-08] MEDS: Dextrose 5%-Lactated Ringers 1,000 ML IV SCH ×2 (08:36→18:25)
[2016-10-08] MEDS ORDERED: Pantoprazole 40 MG Vial IV ONE (09:00)
[2016-10-08] MEDS: Ibuprofen 600 MG Tab PO SCH ×3 (09:11→21:52)
[2016-10-08] MEDS: Gabapentin 300 MG Cap PO SCH ×3 (09:13→21:52)
[2016-10-08] MEDS: Insulin Aspart 100 Units/ML 3 ML Pen SUBCUT PRN ×4 (09:16→21:14)
[2016-10-08] MEDS: metFORMIN 500 MG Tab PO SCH ×2 (09:57→17:33)
--- NOTE | 2016-10-08 11:38 | PN ---
DATE OF SERVICE: 10/08/2016 SUBJECTIVE: The patient was admitted overnight with what appeared to be probably a contained leak from the colorectal anastomosis. He had surgery on 09/23/2016, i.e. just less than 3 weeks ago. Over the last 48 hours, he is having some increased problems with pain and was instructed to come to the emergency room. CT scan showed some air bubbles around the anastomosis and extending slightly into the mesentery, but without any obvious abscess formation or specific problems. He has been eating, although we could not say whether he is eating solid food for the last day or so if this causes the increased pain. OBJECTIVE: VITAL SIGNS: On admission, his temperature was 101 and temperature presently is 98.6. Heart rate in the 90 range. Blood pressure is 121/65. GI: The patient is moderately tender in the left lower quadrant. Otherwise, the exam is unremarkable. LABORATORY DATA: Laboratory exam last night showed white count of 6800 and hemoglobin 12.9. Chemistries were unremarkable. Blood sugar was 190. The patient is a type 2 diabetic, on 3 oral agents. IMPRESSION: Localized probable leak in the recent colorectal anastomosis. PLAN: At this point, I think this is a case where we will try to treat something like a diverticulitis. We will put him on more or less just some clear liquids. Restart some of the oral medications and restarted, after the discussion with the emergency room physician last night, on meropenem and Azactam, and we will follow things clinically. Hopefully, this will be a case that will resolve nonoperatively. We will begin Accu-Checks and blood sugar control. Recheck some labs in the morning. Otherwise, maximize activity during the day. Ac Chairez MD /[id number]
[2016-10-08] MEDS: Aztreonam/Dextrose-Water 1 GM in Premix Bag 1 BAG IV SCH ×2 (13:31→21:48)
[2016-10-08] MEDS: Tamsulosin 0.4 MG Cap.ER PO SCH (21:10)
[2016-10-09] MEDS: Dextrose 5%-Lactated Ringers 1,000 ML IV SCH (03:46)
[2016-10-09] MEDS: Meropenem 500 MG in Sodium Chloride 0.9% 50 ML IV SCH ×4 (03:46→21:47)
[2016-10-09] MEDS: Ibuprofen 600 MG Tab PO SCH ×4 (04:12→21:46)
[2016-10-09] MEDS: Gabapentin 300 MG Cap PO SCH ×4 (06:08→22:27)
[2016-10-09] MEDS: Aztreonam/Dextrose-Water 1 GM in Premix Bag 1 BAG IV SCH ×3 (06:09→22:27)
[2016-10-09] MEDS: Pantoprazole 40 MG Tab.CR PO SCH (07:47)
[2016-10-09] MEDS: metFORMIN 500 MG Tab PO SCH ×2 (07:48→17:18)
[2016-10-09] MEDS: Insulin Aspart 100 Units/ML 3 ML Pen SUBCUT PRN ×3 (07:51→17:23)
--- NOTE | 2016-10-09 08:31 | PN ---
DATE OF SERVICE: 10/09/2016 SUBJECTIVE: Xavier has been afebrile. Continues on the meropenem and Azactam. He does notice if he eats anything with any sugar content that he will have pain in his left lower quadrant radiating about 6 inches. No nausea or vomiting. REVIEW OF SYSTEMS: HEENT: Negative for any headache, dizziness. NECK: Negative. CHEST and LUNGS: Negative for fast irregular heart beat. No chest pain. No cough. ABDOMEN: As above. Reports pain on a pain scale of 1 to 10 as a 0/10 right now. After he eats or drinks, he gets a cramping pain in his left lower quadrant and the pain scale is 4/10. Oral intake yesterday was 2280 and output 3650. EXTREMITIES: Without joint pain. NEUROLOGIC: Intact. SKIN: Without rash. PSYCHIATRIC: Mood and affect appropriate. Remainder of review of systems negative for any pertinent positives and negatives. OBJECTIVE: GENERAL: Xavier Maier is a 55-year-old male. He is alert and orientated, sitting up in bed. VITAL SIGNS: TPR is 96.6, 76, 18. Blood pressure 128/77, O2 saturations by pulse oximetry is 96%. HEENT: Negative. NECK: Supple. HEART: Regular rate and rhythm. LUNGS: Clear. ABDOMEN: Midline incision. Soft, nontender, and Steri-Strips intact. Healing tape [place] from previous surgery noted in the left mid lateral abdomen and there is minimal tenderness noted in the left lower quadrant radiating up as stated above. ASSESSMENT: Localized probable leak in the recent colorectal anastomosis. PLAN: 1. Continue clear liquid diet. 2. Decrease IV to 100 mL per hour. 3. Restart Actos 15 mg daily as he takes at home. 4. Check CBC in a.m. 5. Good pulmonary toilet encouraged. 6. We will evaluate p.r.n. or in a.m. Lesia Wild PA-C /[id number]
[2016-10-09] MEDS: Pioglitazone 15 MG Tab PO SCH (17:20)
[2016-10-09] MEDS: Tamsulosin 0.4 MG Cap.ER PO SCH (21:46)
[2016-10-10] MEDS: Ibuprofen 600 MG Tab PO SCH ×4 (03:06→21:39)
[2016-10-10] MEDS: Meropenem 500 MG in Sodium Chloride 0.9% 50 ML IV SCH ×4 (03:07→21:36)
[2016-10-10] MEDS: Dextrose 5%-Lactated Ringers 1,000 ML IV SCH (03:07)
[2016-10-10] MEDS: Aztreonam/Dextrose-Water 1 GM in Premix Bag 1 BAG IV SCH ×3 (05:35→22:31)
[2016-10-10] MEDS: Gabapentin 300 MG Cap PO SCH ×4 (05:35→21:39)
--- NOTE | 2016-10-10 08:01 | PN ---
DATE OF SERVICE: 10/10/2016 SUBJECTIVE: Xavier is tolerating clear liquid and he states the pain has improved quite a bit. He has had a bowel movement. Blood sugar was last checked and it was 146. Hemoglobin this morning is 11.5 and WBC is 7.2. REVIEW OF SYSTEMS: Remainder of review of systems negative for any pertinent positives and negatives, including: HEENT: Negative. NECK: Negative. CHEST: No chest pain, shortness of breath. LUNGS: No cough. ABDOMEN: As above. EXTREMITIES: Negative for any joint pain. He does report chronic low back pain. NEUROLOGIC: Negative. PSYCHIATRIC: Mood and affect appropriate. OBJECTIVE: GENERAL: Xavier Maier is a 55-year-old male. He is alert and orientated. VITAL SIGNS: TPR 96.5, 67, 18. Blood pressure 117/78. HEENT: Negative. NECK: Supple. HEART: Regular rate and rhythm. LUNGS: Clear. ABDOMEN: Soft. Very minimal tenderness in the left lower quadrant. Steri-Strips remain on. EXTREMITIES: Without peripheral edema. ASSESSMENT: Localized probable leak in the recent colorectal anastomosis. PLAN: 1. Full-liquid diet to start slow. 2. May have diet coke. 3. Good pulmonary toilet. 4. Plan would be to be on IV antibiotics for 2 days and if he continues to improve, to be discharged on Augmentin and doxycycline. Lesia Wild PA-C /[id number]
[2016-10-10] MEDS: metFORMIN 500 MG Tab PO SCH ×2 (08:47→16:57)
[2016-10-10] MEDS: Pantoprazole 40 MG Tab.CR PO SCH (08:47)
[2016-10-10] MEDS: Insulin Aspart 100 Units/ML 3 ML Pen SUBCUT PRN ×2 (08:50→14:06)
[2016-10-10] MEDS: Pioglitazone 15 MG Tab PO SCH (16:57)
[2016-10-10] MEDS: Tamsulosin 0.4 MG Cap.ER PO SCH (21:39)
[2016-10-11] MEDS: Dextrose 5%-Lactated Ringers 1,000 ML IV SCH (02:22)
[2016-10-11] MEDS: Meropenem 500 MG in Sodium Chloride 0.9% 50 ML IV SCH ×4 (05:00→21:24)
[2016-10-11] MEDS: Gabapentin 300 MG Cap PO SCH ×4 (05:29→21:28)
[2016-10-11] MEDS: Ibuprofen 600 MG Tab PO SCH ×4 (05:29→21:27)
[2016-10-11] MEDS: Aztreonam/Dextrose-Water 1 GM in Premix Bag 1 BAG IV SCH ×3 (05:35→22:18)
[2016-10-11] MEDS: metFORMIN 500 MG Tab PO SCH ×2 (07:24→16:41)
[2016-10-11] MEDS: Pantoprazole 40 MG Tab.CR PO SCH (07:24)
[2016-10-11] MEDS: Insulin Aspart 100 Units/ML 3 ML Pen SUBCUT PRN ×2 (07:31→12:51)
--- NOTE | 2016-10-11 07:51 | PN ---
DATE OF SERVICE: 10/11/2016 SUBJECTIVE: Xavier has tolerated a full liquid diet. He has been afebrile. Abdominal pain is a one in 10. He has been up ambulating. REVIEW OF SYSTEMS: HEENT: Negative. NECK: Negative. CHEST: Negative. LUNGS: Negative for chest pain, shortness of breath, fast or irregular heart beat. ABDOMEN: As above. He did have one bowel movement yesterday. EXTREMITIES: Negative. BACK: Chronic back pain. No change. SKIN: Without rash. PSYCHIATRIC : Mood and affect appropriate. OBJECTIVE: GENERAL: Reno Maier is a 55-year-old male. VITAL SIGNS: TPR is 96.2, 60, 18. Blood pressure 133/71. HEENT: Negative. NECK: Supple. HEART: Regular rate and rhythm. LUNGS: Clear. ABDOMEN: Nontender. EXTREMITIES: Without peripheral edema. ASSESSMENT: Localized probable leak in the recent colorectal anastomosis. PLAN: 1. Continue full liquid diet. 2. Good pulmonary. 3. Ambulate as tolerated and saline lock IV. 4. Discharge in a.. Lesia Wild PA-C /[id number]
[2016-10-11] MEDS: Pioglitazone 15 MG Tab PO SCH (15:40)
[2016-10-11] MEDS: Tamsulosin 0.4 MG Cap.ER PO SCH (21:24)
[2016-10-12] MEDS: Ibuprofen 600 MG Tab PO SCH (04:35)
[2016-10-12] MEDS: Meropenem 500 MG in Sodium Chloride 0.9% 50 ML IV SCH (04:39)
[2016-10-12] MEDS: Aztreonam/Dextrose-Water 1 GM in Premix Bag 1 BAG IV SCH (05:22)
[2016-10-12] MEDS: Gabapentin 300 MG Cap PO SCH (05:22)
[2016-10-12] MEDS: Pantoprazole 40 MG Tab.CR PO SCH (07:16)
[2016-10-12] MEDS: metFORMIN 500 MG Tab PO SCH (07:16)
[2016-10-12] MEDS ORDERED: Levofloxacin 250 MG Tab PO ONE (07:21)
[2016-10-12] MEDS ORDERED: Doxycycline 100 MG Cap PO ONE (07:30)
[2016-10-12] MEDS ORDERED: Levofloxacin 500 MG Tab PO ONE (07:30)
[2016-10-12 07:48] VITALS: BP 155/80
[2016-10-12] MEDS ORDERED: Amoxicillin/Clavulanate K 875-125 MG Tab PO ONE (08:00)
--- NOTE | 2016-10-13 13:35 | DISCH ---
FINAL DIAGNOSES: 1. Focal infection at recent colorectal anastomosis. 2. Obesity. 3. Type 2 diabetes mellitus. 4. History of gastroesophageal reflux disease, status post Anila fundoplication. 5. Spinal stenosis back, status post L5-S1 surgical decompression. OPERATIVE PROCEDURES: None. SUMMARY: This is a 55-year-old male who is presenting 19 days after a rectosigmoid resection what turned out to be a benign large lipomatous lesion in the distal sigmoid colon. He had been doing well until around a day or two before hospitalization fever and abdominal pain. He was seen in the emergency room, was noted to have some fine air bubbles around the colorectal anastomosis. He was admitted and treated more or less like a diverticulitis with IV antibiotics and clinically has completely resolved the pain. He is eating well and moving his bowels. He will be discharged to home today. Continue his usual medications plus Levaquin 500 mg p.o. daily x14 days and doxycycline 100 mg p.o. b.i.d. x14 days getting a dose of each of those antibiotics this morning prior to discharge, and follow up with Dr. Chairez will be at [facility] on 10/23/2016. He was instructed to call if he develops any fever, increasing abdominal pain, or other significant complaints.
== END 2016-10-12 09:04 | disposition home or self-care (01) | DRG 392 ==
LOC: JP.ED 20:16 → JP.MS 23:50
PROVIDERS: ADMIT Surgery; ATTEND Surgery
DX: A09 Infectious gastroenteritis and colitis, unspecified (principal); I10 Essential (primary) hypertension; Z90.49 Acquired absence of other specified parts of digestive tract; Z87.01 Personal history of pneumonia (recurrent); G47.30 Sleep apnea, unspecified; K21.9 Gastro-esophageal reflux disease without esophagitis; M54.9 Dorsalgia, unspecified; G89.29 Other chronic pain; M19.90 Unspecified osteoarthritis, unspecified site; E11.9 Type 2 diabetes mellitus without complications; Z79.84 Long term (current) use of oral hypoglycemic drugs; F17.210 Nicotine dependence, cigarettes, uncomplicated; Z98.890 Other specified postprocedural states; Z85.828 Personal history of other malignant neoplasm of skin; Z88.0 Allergy status to penicillin; Z91.048 Other nonmedicinal substance allergy status
CPT/HCPCS: 36415; 74177; 80053; 82962; 83605; 83690; 83735; 83880; 84100; 85027; 87040; 96361; 96365; 96375; 99285-25; A9270-GY; C9113; J2185; J2270; J3490; J7030; J7040; J7042; J7050; S0073

== ENCOUNTER 2017-05-28 18:35 | Emergency (ER) | payer MEDICAID ==
[2017-05-28] MEDS ORDERED: Sodium Chloride 0.9% 1,000 ML IV SCH (19:15)
--- NOTE | 2017-05-28 19:29 | EDM.PDOC ---
ED HPI GENERAL MEDICAL PROBLEM - General Chief Complaint: Abdominal Pain Stated Complaint: BOWELS Time Seen by Provider: 05/28/17 19:05 Source of Information: Reports: Patient History Limitations: Reports: No Limitations - History of Present Illness INITIAL COMMENTS - FREE TEXT/NARRATIVE: 56-year-old male who is been having problems with recurring abdominal pain over the past year, at one point requiring a partial colectomy. He has a colonoscopy scheduled for next week but over the past 2 days she's had increased left lower quadrant pain. Some intermittent chills, possibly fever but no nausea or vomiting. He was in the hospital registering for his colonoscopy when he realized he should be checked because he is becoming worse. The pain is mostly in the left lower quadrant radiating up into the left upper abdomen, no back pain. Onset: Gradual Location: Reports: Abdomen Quality: Reports: Ache, Pressure Severity: Moderate Worsens with: Reports: Movement Associated Symptoms: Reports: Fever/Chills, Loss of Appetite. Denies: Nausea/ Vomiting, Shortness of Breath left abd pain Pain Score (Numeric/FACES): 5 - Related Data Allergies Allergy/AdvReac Type Severity Reaction Status Date / Time adhesive tape Allergy Other Verified 12/25/15 11:34 Home Meds: Home Meds Cyclobenzaprine [Flexeril] 10 mg PO TID PRN 12/25/15 [History] Gabapentin [Neurontin] 300 mg PO TID 12/25/15 [History] glipiZIDE [Glucotrol] 5 mg PO BID 12/25/15 [History] metFORMIN [Glucophage] 1,000 mg PO DAILY 12/25/15 [History] atorvaSTATin [Lipitor] 10 mg PO BEDTIME 09/18/16 [History] Tamsulosin [Flomax] 0.4 mg PO BEDTIME #14 cap.er 09/27/16 [Rx] Simethicone [Gas Relief 80] 80 mg PO ASDIRECTED PRN 10/07/16 [History] Acetaminophen [Tylenol Extra Strength] 1,000 mg PO Q6H PRN 05/28/17 [History] Docusate Sodium/Sennosides [Senna Plus] 2 tab PO DAILY PRN 05/28/17 [History] Ibuprofen [IJD: Ibuprofen] 600 mg PO Q6HR PRN 05/28/17 [History] Liraglutide [Victoza] 0.6 mg SUBCUT DAILY 05/28/17 [History] Past Medical History HEENT History: Reports: Other (See Below) Other HEENT History: nasal trauma Cardiovascular History: Reports: High Cholesterol, Hypertension Respiratory History: Reports: Pneumonia, Recurrent, Sleep Apnea, Other (See Below) Other Respiratory History: wears CPAP Gastrointestinal History: Reports: GERD, Hiatal Hernia Musculoskeletal History: Reports: Arthritis, Back Pain, Chronic, Fracture, Other (See Below) Other Musculoskeletal History: shoulder dislocation Endocrine/Metabolic History: Reports: Diabetes, Type II Oncologic (Cancer) History: Reports: Other (See Below) Other Oncologic History: skin Dermatologic History: Reports: Other (See Below) Other Dermatologic History: skin cancer - Infectious Disease History Infectious Disease History: Reports: Chicken Pox - Past Surgical History GI Surgical History: Reports: Colon, Colonoscopy, EGD, Anila Fundoplication Other GI Surgeries/Procedures: sigmoid colon growth removed. Endocrine Surgical History: Reports: None Neurological Surgical History: Reports: Other (See Below) Other Neurological Surgeries/Procedures: L5-S1 surgery Musculoskeletal Surgical History: Reports: Other (See Below) Other Musculoskeletal Surgeries/Procedures:: back surgery Dermatological Surgical History: Reports: Skin Biopsy Social & Family History - Family History Family Medical History: Noncontributory - Tobacco Use Smoking Status *Q: Current Every Day Smoker Years of Tobacco use: 40 Packs/Tins Daily: 0.5 Used Tobacco, but Quit: No Second Hand Smoke Exposure: No - Caffeine Use Caffeine Use: Reports: Soda Caffeine Use Comment: 10 - Recreational Drug Use Recreational Drug Use: No ED ROS GENERAL - Review of Systems Review Of Systems: See Below Constitutional: Denies: Fever, Chills Respiratory: Denies: Shortness of Breath Cardiovascular: Denies: Chest Pain GI/Abdominal: Reports: Abdominal Pain. Denies: Constipation, Diarrhea, Nausea : Reports: No Symptoms Skin: Reports: No Symptoms Neurological: Reports: No Symptoms ED EXAM, GI/ABD - Physical Exam Exam: See Below Exam Limited By: No Limitations General Appearance: Alert, No Apparent Distress Eyes: Bilateral: Normal Appearance (No jaundice) Respiratory/Chest: No Respiratory Distress, Lungs Clear Cardiovascular: Regular Rate, Rhythm GI/Abdominal Exam: Tender (Patient is fairly tender in the left lower quadrant but no significant guarding, equivocal rebound tenderness is present) Course - Vital Signs Last Recorded V/S: Last Vital Signs Temp 96.7 F 05/28/17 18:54 Pulse 85 05/28/17 20:25 Resp 16 05/28/17 19:39 BP 137/88 05/28/17 20:25 Pulse Ox 95 05/28/17 20:25 - Orders/Labs/Meds Orders: Active Orders 24 hr Category Date Time Status Abdomen Pelvis w Cont [CT] Stat Exams 05/28/17 20:00 Taken Labs: Laboratory Tests 05/28/17 05/28/17 Range/Units 19:14 19:14 WBC 8.6 (4.5-11.0) K/uL RBC 4.65 (4.30-5.90) M/uL Hgb 14.9 D (12.0-15.0) g/dL Hct 43.1 (40.0-54.0) % MCV 93 (80-98) fL MCH 32 H (27-31) pg MCHC 35 (32-36) % Plt Count 207 (150-400) K/uL Neut % (Auto) 58 (36-66) % Lymph % (Auto) 34 (24-44) % [place] % (Auto) 7 H (2-6) % Eos % (Auto) 1 L (2-4) % Baso % (Auto) 1 (0-1) % Sodium 133 L (140-148) mmol/L Potassium 4.2 (3.6-5.2) mmol/L Chloride 99 L (100-108) mmol/L Carbon Dioxide 22 (21-32) mmol/L Anion Gap 16.2 H (5.0-14.0) mmol/L BUN 14 D (7-18) mg/dL Creatinine 1.0 (0.8-1.3) mg/dL Est Cr Clr Drug Dosing 85.17 mL/min Estimated GFR (MDRD) > 60 (>60) Glucose 260 H (74-106) mg/dL Calcium 9.2 (8.5-10.1) mg/dL Total Bilirubin 0.7 (0.2-1.0) mg/dL AST 28 D (15-37) U/L ALT 58 D (12-78) U/L Alkaline Phosphatase 67 (46-116) U/L Total Protein 7.1 (6.4-8.2) g/dL Albumin 3.8 (3.4-5.0) g/dL Globulin 3.3 (2.3-3.5) g/dL Albumin/Globulin Ratio 1.2 (1.2-2.2) Meds: Medications Discontinued Medications Generic Name Dose Route Start Last Admin Trade Name Tangela PRN Reason Stop Dose Admin Sodium Chloride 1,000 mls @ 500 mls/hr 05/28/17 19:15 05/28/17 19:19 Normal Saline IV 500 mls/hr ASDIRECTED INGRID Administration Sodium Chloride 80 mls @ 3 mls/sec 05/28/17 20:15 05/28/17 20:22 Normal Saline IV 3 mls/sec ASDIRECTED INGRID Administration Iopamidol 150 ml 05/28/17 20:15 05/28/17 20:22 Isovue-300 (61%) IV 150 ml . DIRECTED INGRID Administration Metronidazole 500 mg 05/28/17 21:00 05/28/17 21:05 Metronidazole PO 05/28/17 21:01 500 mg ONETIME ONE Administration Sodium Chloride 10 ml 05/28/17 20:06 05/28/17 20:22 Saline Flush FLUSH 10 ml ASDIRECTED PRN Administration Keep Vein Open Trimethoprim/Sulfamethoxazole 1 tab 05/28/17 21:00 05/28/17 21:05 Septra Ds PO 05/28/17 21:01 1 tab ONETIME ONE Administration - Re-Assessments/Exams Free Text/Narrative Re-Assessment/Exam: 05/28/17 19:29 An IV was placed, normal saline started and a CMP and CBC drawn. A CT with IV contrast as planned pending creatinine. 05/28/17 21:01 Labs were normal other than an elevated glucose. CT with IV contrast was then obtained and also showed no evidence of acute inflammation. He did seem to get better with a course of antibiotics a few weeks ago, so he was given 1 dose of metronidazole and Bactrim DS but tomorrow he should continue to take his colonoscopy prep as planned. I did discuss this with Dr. Chairez, he will visit with the patient tomorrow morning if not improving or he has other concerns. I suspect he should just go through his colonoscopy as planned. Departure - Departure Time of Disposition: 21:11 Disposition: Home, Self-Care 01 Condition: Good Clinical Impression: Abdominal pain Qualifiers: Abdominal location: left lower quadrant Qualified Code(s): R10.32 - Left lower quadrant pain - Discharge Information Instructions: Abdominal Pain, Adult, [id number] Referrals: Geraldo Duff MD [Primary Care Provider] - Forms: ED Department Discharge Care Plan Goals: Continue the colonoscopy prep as planned, if increased pain or you develop other concerns visit with Dr. Chairez tomorrow or return to the emergency room. - My Orders Last 24 Hours: My Active Orders 05/28/17 20:00 Abdomen Pelvis w Cont [CT] Stat - Assessment/Plan Last 24 Hours: My Active Orders 05/28/17 20:00 Abdomen Pelvis w Cont [CT] Stat
[2017-05-28] MEDS ORDERED: Sodium Chloride 0.9% 10 ML Syringe FLUSH PRN (20:06)
[2017-05-28] MEDS ORDERED: Sodium Chloride 0.9% 80 ML IV SCH (20:15)
[2017-05-28] MEDS ORDERED: Iopamidol 612 MG/ML 150 ML Bottle IV SCH (20:15)
[2017-05-28 20:25] VITALS: BP 137/88
[2017-05-28] MEDS ORDERED: Sulfamethoxazole/Trimethoprim 800-160 MG Tab PO ONE (21:00)
[2017-05-28] MEDS ORDERED: metroNIDAZOLE 250 MG Tab PO ONE (21:00)
== END 2017-05-28 21:11 | disposition home or self-care (01) ==
LOC: JP.ED 18:35
DX: R10.32 Left lower quadrant pain (principal); E78.00 Pure hypercholesterolemia, unspecified; I10 Essential (primary) hypertension; E11.9 Type 2 diabetes mellitus without complications; F17.210 Nicotine dependence, cigarettes, uncomplicated; Z79.899 Other long term (current) drug therapy
CPT/HCPCS: 36415; 74177; 80053; 85025; 96360; 96361; 99284; A9270; J7030; J7040; J7050

== ENCOUNTER 2017-05-30 09:16 | Day surgery (SDC) | payer MEDICAID ==
[2017-05-30] MEDS ORDERED: Lactated Ringers 1,000 ML IV SCH (10:00)
[2017-05-30] MEDS ORDERED: Propofol 200 MG/20 ML SDV ONE ×2 (10:13→12:35)
[2017-05-30] MEDS ORDERED: fentaNYL 100 MCG/2 ML SDV ONE (10:13)
[2017-05-30] MEDS ORDERED: Midazolam 1 MG/ML 2 ML SDV ONE (10:14)
[2017-05-30 13:46] VITALS: BP 112/81
--- NOTE | 2017-05-30 14:41 | OR ---
DATE OF PROCEDURE: 05/30/2017 PREOPERATIVE DIAGNOSIS: Abdominal pain. POSTOPERATIVE DIAGNOSES: Abdominal pain, etiology unknown; multiple colon polyps. PROCEDURES PERFORMED: Colonoscopy to the cecum with biopsy and snare cautery polypectomy of multiple colon polyps at 65 cm, 50 cm, and 20 cm from the anal verge. SURGEON: Surendra Reyes MD ANESTHESIA: IV anesthesia with monitored anesthesia care. INDICATION: This 56-year-old white male is referred for a colonoscopy because of abdominal pain. 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 He has complained of pain in the left lower quadrant. He has been hospitalized 3 times he says with IV antibiotics given, was thought he had diverticulitis. However, CAT scans have been unremarkable. I counseled him for a colonoscopy with possible biopsy and/or polypectomy including risks and alternatives, and he gave his informed consent to proceed. DESCRIPTION OF PROCEDURE: The patient was placed in the left lateral decubitus position. IV anesthesia was administered by the Anesthesia service. Time-out was held. A rectal exam was performed, which was unremarkable. The flexible video Olympus colonoscope was introduced through his anus, up his rectum, and out his colon, all the way to the cecum. To accomplish this, abdominal compression had to be applied. Once the cecum was reached, the scope was slowly withdrawn, examining the mucosa throughout. There was a lot of fluid, which we had to aspirate free, and there was a lot of spasm, which precluded complete good examination of all the mucosa. At 65 cm from the anal verge, we encountered a polyp. We initially biopsied it. It was too large to remove using this technique. We then passed a snare about its base, elevated up away from the bowel wall, and amputated as electrocautery was applied. The polyp was aspirated through the scope and captured in a polyp trap. At 50 cm from the anal verge, we encountered 2 polyps, which were removed with the snare. They were initially biopsied. Then, the snare was passed about their base, elevated up away from the bowel wall and amputated as electrocautery was applied. These were aspirated up through the scope and captured in a polyp trap. A third polyp was seen at 20 cm from the anal verge. This was removed with the biopsy forceps. We encountered other small ones in this area, which we removed with the biopsy forceps and all sent as specimen from 20 cm. The scope was retroflexed in the rectum with the distal rectum appearing unremarkable. The scope was straightened and removed. He tolerated the procedure well. We did not see any evidence of diverticulitis, diverticulosis, colitis, or other causes of abdominal pain that we could diagnosis with the colonoscope. Surendra Reyes MD /[id number]
== END 2017-05-30 14:00 | disposition home or self-care (01) ==
LOC: JP.SDS 09:16
PROVIDERS: ATTEND Surgery
DX: D12.6 Benign neoplasm of colon, unspecified (principal); K63.5 Polyp of colon; E11.9 Type 2 diabetes mellitus without complications; K21.9 Gastro-esophageal reflux disease without esophagitis; G47.33 Obstructive sleep apnea (adult) (pediatric); Z88.0 Allergy status to penicillin; Z88.8 Allergy status to other drugs, medicaments and biological substances; Z91.09 Other allergy status, other than to drugs and biological substances
CPT/HCPCS: 45380; 45385; J2250; J2704; J3010; J7120; 88305

== ENCOUNTER 2021-01-21 10:54 | Emergency (ER) | payer MEDICARE, MEDICAID ==
[2021-01-21 13:29] VITALS: BP 158/82; PULSE 84
--- NOTE | 2021-01-21 13:54 | EDM.PDOC ---
ED HPI GENERAL MEDICAL PROBLEM - General Chief Complaint: Upper Extremity Injury/Pain Stated Complaint: FELL HURT RIGHT SHOULDER Time Seen by Provider: 01/21/21 13:45 Source of Information: Reports: Patient, Old Records, RN History Limitations: Reports: No Limitations - History of Present Illness INITIAL COMMENTS - FREE TEXT/NARRATIVE: 60 yo male fell onto his R lateral shoulder on a slippery area outside his house last night when he let his dog out. He now is unable to abduct on that shoulder and has some pain. No tx prior to arrival other than his usual meds. Onset: Today, Sudden Onset Date: 01/21/21 Onset Time: 02:00 Duration: Hour(s):, Constant Location: Reports: Upper Extremity, Right Quality: Reports: Ache Severity: Mild Improves with: Reports: Rest Worsens with: Reports: Movement Context: Reports: Trauma Associated Symptoms: Reports: No Other Symptoms Treatments STRAIGHTEDGE MAN: Reports: Other (see below) (none) - Related Data Allergies Allergy/AdvReac Type Severity Reaction Status Date / Time adhesive tape Allergy Other Verified 01/21/21 13:18 Penicillins Allergy Hives Verified 01/21/21 13:18 pregabalin [From Lyrica] Allergy Other Verified 01/21/21 13:18 Home Meds: Home Meds Gabapentin [Neurontin] 300 mg PO QID 12/25/15 [History] Tamsulosin [Flomax] 0.4 mg PO BEDTIME #14 cap.er 09/27/16 [Rx] Past Medical History HEENT History: Reports: Impaired Vision, Other (See Below) Other HEENT History: nasal trauma Cardiovascular History: Reports: High Cholesterol, Hypertension Respiratory History: Reports: Pneumonia, Recurrent, Sleep Apnea, Other (See Below) Other Respiratory History: wears CPAP Gastrointestinal History: Reports: Colon Polyp Musculoskeletal History: Reports: Arthritis, Back Pain, Chronic, Fracture, Other (See Below) Other Musculoskeletal History: shoulder dislocation Endocrine/Metabolic History: Reports: Diabetes, Type II Oncologic (Cancer) History: Reports: Other (See Below) Other Oncologic History: skin Dermatologic History: Reports: Other (See Below) Other Dermatologic History: skin cancer - Infectious Disease History Infectious Disease History: Reports: Chicken Pox - Past Surgical History Head Surgeries/Procedures: Reports: None HEENT Surgical History: Reports: None Other HEENT Surgeries/Procedures: nasal surgery Cardiovascular Surgical History: Reports: None Respiratory Surgical History: Reports: None GI Surgical History: Reports: Colon, Colonoscopy, EGD, Anila Fundoplication, Small Bowel Other GI Surgeries/Procedures: sigmoid colon growth removed. Endocrine Surgical History: Reports: None Neurological Surgical History: Reports: Other (See Below) Other Neurological Surgeries/Procedures: L5-S1 surgery Musculoskeletal Surgical History: Reports: Shoulder Surgery, Other (See Below) Other Musculoskeletal Surgeries/Procedures:: back surgery Oncologic Surgical History: Reports: None Dermatological Surgical History: Reports: Skin Biopsy Social & Family History - Family History Family Medical History: No Pertinent Family History - Tobacco Use Tobacco Use Status *Q: Current Every Day Tobacco User Years of Tobacco use: 55 Packs/Tins Daily: 0.5 - Caffeine Use Caffeine Use: Reports: Soda Other Caffeine Use: 2 to 3 sodas a day Caffeine Use Comment: 10 - Recreational Drug Use Recreational Drug Use: No Review of Systems - Review of Systems Review Of Systems: See Below Constitutional: Reports: No Symptoms Musculoskeletal: Reports: Shoulder Pain (right) Skin: Reports: No Symptoms Neurological: Reports: No Symptoms ED EXAM, GENERAL - Physical Exam Exam: See Below Exam Limited By: No Limitations General Appearance: Alert, WD/WN, No Apparent Distress Extremities: Normal Inspection, No Pedal Edema, Limited Range of Motion (especially reduced to abduction at the right shoulder. ). No: Normal Range of Motion, Non-Tender (minimal palpation tenderness), Joint Swelling, Arm Pain Neurological: Alert, Oriented, CN II-XII Intact, Normal Cognition, No Motor/Sensory Deficits Psychiatric: Normal Affect, Normal Mood Skin Exam: Warm, Dry, Intact, Normal Color, No Rash Course - Vital Signs Last Recorded V/S: Last Vital Signs Temp 35.3 C L 01/21/21 13:21 Pulse 84 01/21/21 13:21 Resp 20 01/21/21 13:21 BP 158/82 H 01/21/21 13:21 Pulse Ox 95 01/21/21 13:21 - Orders/Labs/Meds Orders: Active Orders 24 hr Category Date Time Status Shoulder Comp Rt [CR] Stat Exams 01/21/21 13:33 Ordered - Radiology Interpretation Free Text/Narrative:: R shoulder X-ray-neg Departure - Departure Time of Disposition: 14:35 Disposition: Home, Self-Care 01 Condition: Fair Clinical Impression: Right shoulder pain Qualifiers: Chronicity: acute Qualified Code(s): M25.511 - Pain in right shoulder Rotator cuff disorder Qualifiers: Laterality: right Qualified Code(s): M67.911 - Unspecified disorder of synovium and tendon, right shoulder - Discharge Information *PRESCRIPTION DRUG MONITORING PROGRAM REVIEWED*: Not Applicable *COPY OF PRESCRIPTION DRUG MONITORING REPORT IN PATIENT TIFFANIE: Not Applicable Instructions: Shoulder Pain, [id number] Referrals: Geraldo Duff MD [Primary Care Provider] - Forms: ED Department Discharge Additional Instructions: Use your sling at all times except with bathing. Avoid using that arm with your elbow away from your body. Someone will call you with an appt to see orthopedics for later this week. Sepsis Event Note (ED) - Evaluation Sepsis Screening Result: No Definite Risk - Focused Exam Vital Signs: Vital Signs Temp Pulse Resp BP Pulse Ox 01/21/21 13:21 35.3 C L 84 20 158/82 H 95 - My Orders Last 24 Hours: My Active Orders 01/21/21 13:33 Shoulder Comp Rt [CR] Stat - Assessment/Plan Last 24 Hours: My Active Orders 01/21/21 13:33 Shoulder Comp Rt [CR] Stat
--- NOTE | 2021-01-21 14:49 | CRLCR ---
For Patients: As a result of the Cures Act, medical imaging exams and procedure reports are released immediately into your electronic medical record. You may view this report before your referring provider. If you have questions, please contact your health care provider. Indication: Fall on right shoulder. Technique: Right shoulder 4 views. Comparison: None. Findings: No acute fracture or dislocation. Mild degenerative changes of the glenohumeral and acromioclavicular joints. The visualized right lung is clear. Soft tissues are unremarkable. Impression: No acute findings. Dictated by Lesia Stanley MD @ 01/21/2021 2:48:51 PM (Electronically Signed)
== END 2021-01-21 14:44 | disposition home or self-care (01) ==
LOC: JP.ED 10:54
DX: M25.511 Pain in right shoulder (principal); M67.911 Unspecified disorder of synovium and tendon, right shoulder; E11.9 Type 2 diabetes mellitus without complications; I10 Essential (primary) hypertension; E78.00 Pure hypercholesterolemia, unspecified; Z91.040 Latex allergy status; Z88.0 Allergy status to penicillin; Z79.899 Other long term (current) drug therapy; Z72.0 Tobacco use
CPT/HCPCS: 73030-RT; 99283-25